=== PATIENT | male | born 1995 | race Caucasian/White ===

== ENCOUNTER 2021-07-10 16:45 | Emergency (ER) | payer OTHER, SELFPAY ==
[2021-07-10 17:10] VITALS: BP 123/87; PULSE 108; RESP 16; TEMP 36.3; O2SAT 98
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
[2021-07-10 17:41] VITALS: BP 135/70; PULSE 103; RESP 16; TEMP 36.3; O2SAT 98
== END 2021-07-10 17:42 | disposition home or self-care (01) ==
PROVIDERS: Emergency Provider Emergency Medicine
DX: L02.91 Cutaneous abscess, unspecified (principal)
CPT/HCPCS: 99283

== ENCOUNTER 2021-09-10 21:06 | Emergency (ER) | payer OTHER, SELFPAY ==
[2021-09-10 21:10] VITALS: BP 149/78; PULSE 88; RESP 14; TEMP 36.6; O2SAT 98
--- NOTE | 2021-09-10 21:23 | ED.NECK ---
HPI - Neck Pain/Injury General Stated Complaint: neck pain Time Seen by Provider: 09/10/21 21:23 Source: patient and RN notes reviewed Mode of arrival: ambulatory Limitations: no limitations History of Present Illness HPI Narrative: Patient states he woke up about a week ago and stretched his neck to both sides and then felt pain on the right side of his neck. He has tried some Aleve [id number] and Tylenol. It still continues to have pain. There is no injury. He denies any nausea vomiting, fever chills. No numbness or tingling in his arms. complaint: neck pain Onset (ago): week(s) (1) Place: home Radiation: right lateral Severity: moderate Quality: burning, dull and aching Duration: constant Relieving factors: none Exacerbating factors: movement of neck Context: unknown Associated symptoms: none Treatments prior to arrival: acetaminophen and ibuprofen Related Data Allergies Allergy/AdvReac Type Severity Reaction Status Date / Time Penicillins Allergy Unknown Verified 09/10/21 22:06 Review of Systems Review of Systems: All systems reviewed & are unremarkable except as noted in HPI and below Constitutional: Constitutional: Denies chills and Denies fever(s) Gastrointestinal: Gastrointestinal: Denies diarrhea and Denies vomiting Neurologic: Denies numbness and Denies weakness PMFSH Past Medical History Medical History Asthma Exam Const: General: healthy appearing, no acute distress and alert Nutritional Appearance: well nourished Orientation/consciousness: patient oriented x3 Limitations: no limitations HENMT: Head: normal to inspection Ears: external ears normal General nose exam: Normal external nose present Face and sinus: normal facial exam Mouth: Yes moist mucous membranes Eyes: Conjunctivae: conjunctivae normal Pupils: Equal, round and reactive pupils present EOM: EOMs intact bilaterally Neck: Neck: normal visual inspection Resp: Effort & Inspection: normal respiratory effort Auscultation: clear to auscultation bilaterally Cardio: Rate: regular rate Rhythm: regular rhythm GI: GI Palp: Yes Soft to palpation and No Tenderness to palpation present (GI) Auscultation: normal bowel sounds Back/Spine/Pelvis: Cervical Spine: cervical ROM normal, cervical muscular tenderness ( moderate on the right) and pain with cervical ROM ( in all directions but able to fully rotate his neck) Thoracic/Lumbar Spine: thoraco-lumbar ROM normal Skin: General skin exam: normal color Rashes: no rashes Wounds: no wounds Neuro: General: patient oriented x3, moves all extremities, no meningeal signs and CN's II-XI intact bilaterally Speech: normal speech Gait exam (Neuro): Normal gait present Extrem: General: normal to inspection and no clubbing, cyanosis or edema Psych: Mental Status: mental status grossly normal Affect: normal affect Attitude: cooperative Discharge Plan Discharge Clinical Impression: Acute strain of neck muscle Patient Disposition: Home, Self-Care Condition: Stable Instructions: Cervical Strain (ED) Additional Instructions: use warm heat as needed to the right side of her neck. Follow-up with your primary care physician if it does not resolve in the next 3-6 weeks. Prescriptions: New nabumetone 750 mg tablet 750 mg PO BID Qty: 20 0RF tramadol 50 mg tablet 50 mg PO Q6H PRN (Reason: pain) Qty: 10 0RF Follow-up/Referrals: Felisa,MD Efren [Primary Care Provider] - Time of Disposition: 21:33
[2021-09-10] MEDS: KETOROLAC (*BKC) 60 MG/2 ML VIAL IM (21:54)
[2021-09-10] MEDS: ORPHENADRINE CITRATE 30 MG/ML 2 ML VIAL 60 MG IM (21:55)
[2021-09-10 22:12] VITALS: BP 146/83; PULSE 86; RESP 16; O2SAT 100
== END 2021-09-10 22:16 | disposition home or self-care (01) ==
PROVIDERS: Emergency Provider Emergency Medicine; PCP Family Medicine
DX: S16.1XXA Strain of muscle, fascia and tendon at neck level, initial encounter (principal)
CPT/HCPCS: 96372; 99284; J1885; J2360

== ENCOUNTER 2022-02-01 18:43 | Emergency (ER) | payer OTHER, SELFPAY ==
--- NOTE | 2022-02-01 18:45 | ED.WOUNDLAC ---
HPI - Wound/Laceration General Chief Complaint: Wound/Laceration Stated Complaint: amb Time Seen by Provider: 02/01/22 18:45 Source: patient and RN notes reviewed Mode of arrival: EMS Limitations: no limitations History of Present Illness HPI narrative: accidentally cut it with a knife in soapy water in the dishes. Onset (ago): minute(s) (30) Extremity Location: Right: hand (5th finger) Place: home Patient tetanus UTD: Yes Context: accidental and sharp object use Associated symptoms: none Treatments prior to arrival: bandage Related Data Home Medications Medication Instructions Recorded Confirmed albuterol sulfate 90 mcg/actuation 2 inh inhalation Q4H PRN Shortness 02/01/22 02/01/22 aerosol inhaler Of Breath Allergies Allergy/AdvReac Type Severity Reaction Status Date / Time Penicillins Allergy Unknown Verified 09/10/21 22:13 SKIN GLUE Allergy Unknown Uncoded 02/01/22 18:56 Review of Systems Review of Systems: All systems reviewed & are unremarkable except as noted in HPI and below PMFSH Past Medical History Medical History (Updated 02/01/22 @ 19:25 by Preston Owens MD) Asthma Surgical History Surgical History (Updated 02/01/22 @ 18:52 by Preston Owens MD) Hypospadias Exam Const: General: healthy appearing, no acute distress and alert Nutritional Appearance: well nourished Orientation/consciousness: patient oriented x3 Limitations: no limitations HENMT: Head: normal to inspection Ears: external ears normal Eyes: Conjunctivae: conjunctivae normal Pupils: Equal, round and reactive pupils present EOM: EOMs intact bilaterally Neck: Neck: normal visual inspection Resp: Effort & Inspection: normal respiratory effort Auscultation: clear to auscultation bilaterally Cardio: Rate: regular rate Rhythm: regular rhythm GI: GI Palp: Yes Soft to palpation and No Tenderness to palpation present (GI) Auscultation: normal bowel sounds Back/Spine/Pelvis: Cervical Spine: cervical ROM normal Thoracic/Lumbar Spine: thoraco-lumbar ROM normal Skin: General skin exam: normal color Wounds: wounds noted laceration right volar 5th finger size (2.5 cm), margins well approximated and open Neuro: General: patient oriented x3, moves all extremities, no focal motor deficits and CN's II-XI intact bilaterally Speech: normal speech Extrem: General: normal to inspection and no clubbing, cyanosis or edema Psych: Mental Status: mental status grossly normal Affect: normal affect Attitude: cooperative Course Vital Signs Vital signs: Vital Signs Temperature 36.6 C 02/01/22 18:48 Pulse Rate 113 H 02/01/22 18:48 Respiratory Rate 20 02/01/22 18:48 Blood Pressure 148/91 H 02/01/22 18:48 Pulse Oximetry 96 02/01/22 18:48 Oxygen Delivery Room Air 02/01/22 18:48 Temperature 37.1 C 02/01/22 19:45 Pulse Rate 99 02/01/22 19:45 Respiratory Rate 20 02/01/22 19:45 Blood Pressure 172/99 H 02/01/22 19:45 Pulse Oximetry 98 02/01/22 19:45 Oxygen Delivery Room Air 02/01/22 19:45 Procedures Laceration Laceration 1: Date: 02/01/22 Site: hand (5th finger) Side (If applicable): right Size (cm): 2.5 Description: flap Depth: simple, single layer Local Anesthetic: lidocaine 1% ( Digital nerve block) Amount of anesthesia used (mL): 7 Pre-repair: wound explored and irrigated ====== Skin Level ====== Skin layer closed with: nylon Size (cm): 4-0 Number of sutures: 8 Technique: running ====== Subcutaneous Layer ====== ====== Muscle Layer ====== ====== Tendon Layer ====== Discharge Plan Discharge Clinical Impression: Laceration Patient Disposition: Home, Self-Care Condition: Improved Instructions: Care For Your Stitches (ED), Laceration (ED) Additional Instructions: do not get wet for 36 hours. Leave the bandage on for 36 hours. Sutures out in 10-14 d
[2022-02-01 18:48] VITALS: BP 148/91; PULSE 113; RESP 20; TEMP 36.6; O2SAT 96
[2022-02-01 19:45] VITALS: BP 172/99; PULSE 99; RESP 20; TEMP 37.1; O2SAT 98
[2022-02-01] MEDS: NEOMYCIN/POLYMYXIN/BACITRACIN OINTMENT PACKET 1 PACKET TOPICAL (19:47)
== END 2022-02-01 19:49 | disposition home or self-care (01) ==
PROVIDERS: Emergency Provider Emergency Medicine; PCP Family Medicine
DX: S61.216A Laceration without foreign body of right little finger without damage to nail, initial encounter (principal); W26.0XXA Contact with knife, initial encounter
CPT/HCPCS: 12001; 99282

== ENCOUNTER 2022-03-22 23:16 | Emergency (ER) | payer OTHER, SELFPAY ==
[2022-03-22 23:18] VITALS: BP 142/102; PULSE 108; RESP 16; TEMP 36.9; O2SAT 97
--- NOTE | 2022-03-22 23:27 | ED.GENADULT ---
HPI - General Adult General Chief complaint: Dental/Oral Stated complaint: Tooth Pain History of Present Illness HPI narrative: Dinesh is a 26 M with a PMH of poor dentition that presents to the ED with bilateral jaw pain, L>R. It has been ongoing for 1.5 years but became much worse today. He also has some left sided facial swelling. There are no fevers, chills, inability to swallow, CP, or dyspnea. He reports a penicillin allergy from childhood but does not know his response. He tolerates amoxicillin without difficulty. Related Data Home Medications Medication Instructions Recorded Confirmed albuterol sulfate 90 mcg/actuation 2 inh inhalation Q4H PRN Shortness 02/01/22 03/22/22 aerosol inhaler Of Breath Allergies Allergy/AdvReac Type Severity Reaction Status Date / Time Penicillins Allergy Unknown Verified 03/22/22 23:21 SKIN GLUE Allergy Unknown Uncoded 02/01/22 18:56 Review of Systems Review of Systems: All systems reviewed & are unremarkable except as noted in HPI and below [facility] Past Medical History Medical History Asthma Surgical History Surgical History Hypospadias Exam Const: General: healthy appearing and no acute distress Nutritional Appearance: well nourished HENMT: Head: normal to inspection Ears: external ears normal Other: mild facial swelling on the left. Left anterior cervical lymphadenopathy. Generally poor dentition. Left lower molars are painful and TTP with erythematous base Eyes: Conjunctivae: conjunctivae normal Pupils: Equal, round and reactive pupils present Neck: Neck: normal visual inspection Chest: Chest palpation & inspection: normal inspection of the chest Resp: Effort & Inspection: normal respiratory effort Cardio: Rate: regular rate Back/Spine/Pelvis: Back: no CVA tenderness Skin: General skin exam: normal color Rashes: no rashes Neuro: General: patient oriented x3 and moves all extremities Extrem: General: normal to inspection Psych: Mental Status: mental status grossly normal Course Course Emergency Course: Given Augmentin and toradol Vital Signs Vital signs: Vital Signs Temperature 98.5 F 03/22/22 23:18 Pulse Rate 108 H 03/22/22 23:18 Respiratory Rate 16 03/22/22 23:18 Blood Pressure 142/102 H 03/22/22 23:18 Pulse Oximetry 97 03/22/22 23:18 Oxygen Delivery Room Air 03/22/22 23:18 Temperature 98.5 F 03/22/22 23:18 Pulse Rate 94 03/22/22 23:57 Respiratory Rate 16 03/22/22 23:57 Blood Pressure 157/84 H 03/22/22 23:57 Pulse Oximetry 97 03/22/22 23:57 Oxygen Delivery Room Air 03/22/22 23:57 Medical Decision Making Vital Signs Vital Signs: Vital Signs Temperature 98.5 F 03/22/22 23:18 Pulse Rate 108 H 03/22/22 23:18 Respiratory Rate 16 03/22/22 23:18 Blood Pressure 142/102 H 03/22/22 23:18 Pulse Oximetry 97 03/22/22 23:18 Oxygen Delivery Room Air 03/22/22 23:18 Temperature 98.5 F 03/22/22 23:18 Pulse Rate 94 03/22/22 23:57 Respiratory Rate 16 03/22/22 23:57 Blood Pressure 157/84 H 03/22/22 23:57 Pulse Oximetry 97 03/22/22 23:57 Oxygen Delivery Room Air 03/22/22 23:57 Discharge Plan Discharge Clinical Impression: Dental abscess Patient Disposition: Home, Self-Care Condition: Stable Instructions: Dental Abscess (ED) Prescriptions: New amoxicillin-pot clavulanate 875-125 mg tablet 1 tablet PO Q12H Qty: 10 0RF hydrocodone-acetaminophen 5-325 mg tablet 1 tablet PO Q8H PRN (Reason: pain) Qty: 10 0RF No Action albuterol sulfate 90 mcg/actuation HFA aerosol inhaler 2 inh INHALATION Q4H PRN (Reason: Shortness Of Breath) Follow-up/Referrals: Felisa,MD Efren [Primary Care Provider] - Stand Alone Forms: Work/School Release IP
[2022-03-22] MEDS: KETOROLAC 30 MG/ML VIAL (*BKC) IM (23:39)
[2022-03-22] MEDS: AMOXICILLIN/CLAVULANATE K 875-125 MG TAB 1 TABLET PO (23:39)
[2022-03-22 23:57] VITALS: BP 157/84; PULSE 94; RESP 16; O2SAT 97
== END 2022-03-23 00:04 | disposition home or self-care (01) ==
PROVIDERS: Emergency Provider Family Medicine; PCP Family Medicine
DX: K04.7 Periapical abscess without sinus (principal); J45.909 Unspecified asthma, uncomplicated; Z79.51 Long term (current) use of inhaled steroids
CPT/HCPCS: 96372; 99283; A9270; J1885

== ENCOUNTER 2022-06-01 20:00 | Emergency (ER) | payer OTHER, SELFPAY ==
[2022-06-01 20:11] VITALS: BP 121/93; PULSE 111; RESP 20; TEMP 36.8; O2SAT 97
--- NOTE | 2022-06-01 20:58 | ED.DENTAL ---
HPI - Dental/Oral General Chief complaint: Dental/Oral Stated complaint: Tooth Pain Time Seen by Provider: 06/01/22 20:10 Source: patient Mode of arrival: ambulatory Limitations: no limitations History of Present Illness HPI Narrative: 26-year-old male with no significant past medical history presents to the ER with -- left lower dental pain. The patient has chronic pain which has gotten worse over the past few days. The patient has extensive dental caries with fractures of multiple teeth. MD Complaint: tooth pain Location: Tooth # ( the patient has involvement of all premolars and molars with missing crowns and extensive dental caries) Onset (ago): week(s) Severity: moderate Relieving factors: nothing Exacerbating factors: nothing Context: history of dental caries and poor dental care Treatment prior to arrival: none Related Data Home Medications Medication Instructions Recorded Confirmed albuterol sulfate 90 mcg/actuation 2 inh inhalation Q4H PRN Shortness 02/01/22 03/22/22 aerosol inhaler Of Breath Allergies Allergy/AdvReac Type Severity Reaction Status Date / Time Penicillins Allergy Unknown Verified 03/22/22 23:21 SKIN GLUE Allergy Unknown Uncoded 02/01/22 18:56 Review of Systems Review of Systems: All systems reviewed & are unremarkable except as noted in HPI and below Constitutional: Constitutional: Reports as per HPI and Reports no additional constitutional complaints Eyes: Eyes: Reports as per HPI and Reports no additional eye complaints ENT: Reports system reviewed and no additional complaints, except as documented Comments: extensive dental caries with pain left lower jaw Cardiovascular: Cardiovascular: Reports as per HPI and Reports no additional cardiovascular complaints Respiratory: Respiratory: Reports as per HPI and Reports no additional respiratory complaints Gastrointestinal: Gastrointestinal: Reports as per HPI and Reports no additional gastrointestinal complaints Genitourinary: Genitourinary: Reports no additional male genitourinary complaints Musculoskeletal: Musculoskeletal: Reports no additional musculoskeletal complaints Integumentary/Breasts: Skin/Breast: Reports system reviewed and no additional complaints, except as docu and Reports as per HPI Neurologic: Reports system reviewed and no additional complaints, except as documented and Reports as per HPI Psychiatric: Psychiatric: Reports no additional psychiatric complaints and Reports as per HPI Endocrine: Endocrine: Reports no additional endocrine complaints and Reports as per HPI Hematologic/Lymphatic: Hematologic/Lymphatic: Reports no additional hematologic/lymphatic complaints and Reports as per HPI Allergic/Immunologic: Allergic/Immunologic: Reports no additional allergic/immunologic complaints and Reports as per HPI PMFSH Past Medical History Medical History (Updated 06/01/22 @ 21:05 by Koby Salazar MD) Asthma Dental caries Surgical History Surgical History Hypospadias Exam Const: General: healthy appearing and no acute distress Nutritional Appearance: well nourished Orientation/consciousness: patient oriented x3 Limitations: no limitations HENMT: Head: normal to inspection Ears: external ears normal Face/Nose/Sinus: Normal external nose present Face and sinus: normal facial exam Mouth: Yes Normal oral and palatal mucosa present Teeth and gingiva: dentition normal ( extensive dental caries. Missing/ fractured crowns of all molars and pre) Throat: posterior oropharynx normal Eyes: Conjunctivae: conjunctivae normal Pupils: Equal, round and reactive pupils present EOM: EOMs intact bilaterally Direct Ophthalmoscopy: no photophobia Neck: Neck: normal visual inspection, no lymphadenopathy and no meningeal signs Chest: Chest palpation & inspection: normal inspection of the chest Resp: Effort & Inspection: normal respiratory effort Au
[2022-06-01] MEDS: HYDROcodone/acetaminophen (*CRX) 5-325 MG TABLET 1 TAB PO (21:22)
[2022-06-01] MEDS: CLINDAMYCIN HCL 150 MG CAP 300 MG PO (21:22)
[2022-06-01 21:27] VITALS: BP 132/84; PULSE 88; RESP 20; O2SAT 98
== END 2022-06-01 21:40 | disposition home or self-care (01) ==
PROVIDERS: Emergency Provider Internal Medicine Critical Care Medicine; PCP Registered Nurse
DX: K02.9 Dental caries, unspecified (principal)
CPT/HCPCS: 99283; A9270

== ENCOUNTER 2023-01-02 14:20 | Emergency (ER) | payer OTHER, SELFPAY ==
--- NOTE | ~2023-01-02 | XR_ITS ---
EXAMINATION:[id number] DATE: 01/02/2023 15:36 INDICATION: One week of left-sided neck pain radiating into the left arm TECHNIQUE: AP, lateral, lateral swimmers and odontoid views of the cervical spine are provided. COMPARISON: None FINDINGS: There is reversal of the normal cervical lordosis along with 10 degree cervical levocurvature. Odont oid is intact. Normal atlantoaxial interval. Vertebral body heights are normal. Disc spaces are damian l. Mild uncovertebral osteoarthritis on the left at C3-C4 and on the right at C4-C5 and C5-C6. Mild f acet osteoarthritis in the mid to upper thoracic spine on the lateral projection. Prevertebral soft t issues are normal. IMPRESSION: 1. Mild cervical kyphosis with 10 degree levocurvature. 2. Mild cervical facet and uncovertebral osteoarthritis with preserved disc heights. Reviewed, dictated and finalized at location A. IMPRESSION: 1. Mild cervical kyphosis with 10 degree levocurvature. 2. Mild cervical facet and uncovertebral osteoarthritis with preserved disc hei ghts.
[2023-01-02 14:20] VITALS: BP 153/91; PULSE 104; RESP 14; TEMP 36.7; O2SAT 97
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
[2023-01-02] MEDS: KETOROLAC 30 MG/ML VIAL (*BKC) IM (15:06)
[2023-01-02 16:14] VITALS: BP 142/81; PULSE 92; RESP 17; TEMP 36.9; O2SAT 98
== END 2023-01-02 16:14 | disposition home or self-care (01) ==
PROVIDERS: Emergency Provider Emergency Medicine; PCP Registered Nurse
DX: S16.1XXA Strain of muscle, fascia and tendon at neck level, initial encounter (principal); M50.10 Cervical disc disorder with radiculopathy, unspecified cervical region; Y04.0XXA Assault by unarmed brawl or fight, initial encounter
CPT/HCPCS: 72040; 96372; 99283; J1885

== ENCOUNTER 2023-03-13 12:10 | Emergency (ER) | payer OTHER, SELFPAY ==
[2023-03-13 12:17] VITALS: BP 128/72; PULSE 98; RESP 18; TEMP 37.1; O2SAT 98
--- NOTE | 2023-03-13 12:43 | ECG_ITS ---
Measurements Intervals [place] Rate: 111 P: 39 MS: 164 QRS: 28 QRSD: 89 T: 62 QT: 320 QTc: 436 Interpretive Statements SINUS TACHYCARDIA POSSIBLE LEFT ATRIAL ENLARGEMENT [-0.1mV P-WAVE IN V1/V2] NONSPECIFIC T-WAVE ABNORMALITY ABNORMAL RHYTHM ECG NO PREVIOUS ECG AVAILABLE FOR COMPARISON Electronically Signed On 03-15-2023 13:57:58 ROOMS DIRECTOR by Roxanne Nicole M.D.
[2023-03-13] MEDS: SODIUM CHLORIDE 0.9% IV 1,000 ML 999 ML IV CONT (13:01)
[2023-03-13] MEDS: ONDANSETRON INJ 4 MG/2 ML VIAL IV PUSH (13:02)
[2023-03-13 13:05] LABS: Hematocrit 44.4 % (40.0-54.0); Hemoglobin 15.5 g/dL (14.0-18.0); Mean Corpuscular HGB Conc 34.9 g/dL (32.0-36.0); Mean Corpuscular Volume 85.9 fL (78.0-102.0); Mean Platelet Volume 8.5 fl (8.7-11.0); Platelet Count Result 169 K/mm3 (150-420); Red Blood Count 5.17 M/mm3 (4.70-6.10); Red Cell Distribution Width 12.1 % (11.6-14.4); White Blood Count 5.9 K/mm3 (4.8-10.8)
[2023-03-13 13:23] LABS: Band Neutrophils Percent 0 % (0-6); Eosinophils Absolute Manual 0.05 K/mm3 (0.02-0.5); Eosinophils Percent Manual 1 % (1-6); Neutrophils Absolute Manual 3.77 K/mm3 (1.3-6.7); Neutrophils Percent Manual 64 % (46-73); Total Cells Counted 100
[2023-03-13 13:24] LABS: Platelet Estimate Adequate (Adequate)
[2023-03-13 13:26] LABS: Alanine Aminotransferase 77 U/L (16-63); Albumin Level 4.1 g/dL (3.4-5.0); Alkaline Phosphatase 129 U/L (46-116); Anion Gap 5 mmol/L (8-16); Aspartate Amino Transferase 30 U/L (15-37); Bilirubin,Total 0.4 mg/dL (0.00-1.00); Blood Urea Nitrogen 13 mg/dL (7-18); Calcium 8.9 mg/dL (8.5-10.1); Carbon Dioxide 32 mmol/L (21-32); Chloride 98 mmol/L (98-108); Estimated CRCL calculation 117 ml/min; Estimated Glomerular Filt Rate > 60; Glucose 114 mg/dL (70-99); Osmolality Calculated 281 mOsm/kg (285-295); Potassium 3.6 mmol/L (3.5-5.1); Sodium 135 mmol/L (136-145); Total Protein 7.2 g/dL (6.4-8.2)
[2023-03-13 13:27] LABS: Creatine Kinase 187 U/L (39-308)
[2023-03-13 14:23] LABS: SARS-CoV-2 RNA PCR Positive (Negative)
[2023-03-13 14:24] LABS: Influenza A QL RT-PCR Negative (Negative); Influenza B QL RT-PCR Negative (Negative); RSV RNA, RT-PCR Negative (Negative)
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
[2023-03-13 15:39] VITALS: BP 131/50; PULSE 110; RESP 20; TEMP 37.1; O2SAT 98
[2023-03-15 06:55] LABS: Lymphocytes Absolute Manual 0.76 K/mm3 (1.1-4.5); Lymphocytes Percent Manual 13 % (18-44)
[2023-03-15 06:56] LABS: Basophils Absolute Manual 0.05 K/mm3 (0-0.1); Basophils Percent Manual 1 % (0-1); Monocytes Absolute Manual 1.23 K/mm3 (0.1-0.90); Monocytes Percent Manual 21 % (3-9)
== END 2023-03-13 15:44 | disposition home or self-care (01) ==
PROVIDERS: Emergency Provider Emergency Medicine; PCP Registered Nurse
DX: U07.1 COVID-19 (principal); J45.909 Unspecified asthma, uncomplicated
CPT/HCPCS: 36415; 80053; 82550; 85025; 87637; 93005; 96361; 96374; 99284; J2405; J7030

== ENCOUNTER 2023-05-05 22:08 | Emergency (ER) | payer OTHER, SELFPAY ==
[2023-05-05 22:11] VITALS: BP 140/89; PULSE 107; RESP 20; TEMP 36.6; O2SAT 100
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
[2023-05-05] MEDS: SILVER NITRATE (*SP) STICK 1 EACH TOPICAL (22:19)
[2023-05-05] MEDS: LIDOCAINE HCL 1% LOCAL INJ 10 ML VIAL 2 ML INFILTRATE (22:25)
[2023-05-05] MEDS: SULFAMETHOXAZOLE/TRIMETHOPRIM 800/160 MG DS TABLET 1 TAB PO (22:49)
== END 2023-05-05 23:00 | disposition home or self-care (01) ==
LOC: CHSED 22:40
PROVIDERS: Emergency Provider Internal Medicine Critical Care Medicine; PCP Registered Nurse
DX: L98.491 Non-pressure chronic ulcer of skin of other sites limited to breakdown of skin (principal)
CPT/HCPCS: 99283; A9270

== ENCOUNTER 2024-04-04 11:51 | Outpatient (CLI) | payer OTHER, SELFPAY ==
[2024-04-04 12:41] LABS: Strep Group A RT-PCR NOT DETECTED (Negative)
[2024-04-04 12:48] LABS: SARS-CoV-2 RNA PCR Negative (Negative)
[2024-04-04 12:51] LABS: Influenza A QL RT-PCR Positive (Negative); Influenza B QL RT-PCR Negative (Negative)
== END 2024-04-04 11:52 | disposition home or self-care (01) ==
LOC: CHSLAB 11:55
PROVIDERS: PCP Registered Nurse; Visit Provider Registered Nurse
DX: U07.1 COVID-19 (principal); R68.89 Other general symptoms and signs
CPT/HCPCS: 87636; 87651

== ENCOUNTER 2024-04-13 18:22 | Emergency (ER) | payer OTHER, SELFPAY ==
[2024-04-13 18:22] VITALS: BP 127/84; PULSE 82; RESP 16; TEMP 37.1; O2SAT 97
--- NOTE | 2024-04-13 18:33 | ED_ITS ---
HPI - Extremity Problem General Chief complaint: Extremity Problem,Nontraumatic Stated complaint: hand pain Time Seen by Provider: 04/13/24 18:33 Source: patient Mode of arrival: ambulatory Limitations: no limitations History of Present Illness HPI Narrative: patient had been diagnosed by his primary with frostbite in his bilateral hands and a missed appointment today for reassessment, currently having some mild discomfort in his hands but circulation is a markedly improved his hands and fingers jessica has a good radial pulse with mild redness and has some no numbness or tingling in his hands or fingers. Complaint: extremity pain and extremity swelling Onset (ago): day(s) Location: upper extremity Related Data Allergies Allergy/AdvReac Type Severity Reaction Status Date / Time Penicillins Allergy Unknown Verified 04/13/24 18:23 SKIN GLUE Allergy Unknown Uncoded 03/13/23 15:35 Review of Systems Review of Systems: All systems reviewed & are unremarkable except as noted in HPI and below PMFSH Past Medical History Medical History Dental caries Asthma Surgical History Surgical History Hypospadias Exam Const: General: healthy appearing and no acute distress Nutritional Appearance: well nourished Orientation/consciousness: patient oriented x3 Limitations: no limitations Chest: Chest palpation & inspection: normal inspection of the chest Resp: Effort & Inspection: normal respiratory effort Auscultation: clear to auscultation bilaterally Cardio: Rate: regular rate Rhythm: regular rhythm GI: GI Palp: Yes Soft to palpation Auscultation: normal bowel sounds Skin: General skin exam: normal color Rashes: no rashes Wounds: no wounds Neuro: General: patient oriented x3, moves all extremities and no meningeal signs Course Course Emergency Course: After assessment no evidence of frostbite. Vital Signs Vital signs: Vital Signs Temperature 37.1 C 04/13/24 18:22 Pulse Rate 82 04/13/24 18:22 Respiratory Rate 16 04/13/24 18:22 Blood Pressure 127/84 04/13/24 18:22 Pulse Oximetry 97 04/13/24 18:22 Oxygen Delivery Room Air 04/13/24 18:22 Temperature 37.1 C 04/13/24 18:22 Pulse Rate 82 04/13/24 18:22 Respiratory Rate 16 04/13/24 18:22 Blood Pressure 127/84 04/13/24 18:22 Pulse Oximetry 97 04/13/24 18:22 Oxygen Delivery Room Air 04/13/24 18:22 Critical Care Time Critical Care Time Critical Care Time: No Discharge Plan Discharge Clinical Impression: Frostbite of both hands Patient Disposition: Home, Self-Care Condition: Stable Instructions: Antibiotic Form, Frostbite (ED) Additional Instructions: advised to take Advil twice daily with meals for the next 3 to 4 days. Patient Language: [place] Prescriptions: No Action sulfamethoxazole-trimethoprim [Bactrim DS] 800-160 mg tablet 1 tablet PO Q12H Qty: 14 0RF Follow-up/Referrals: Nithya,DASH Ontiveros [Primary Care Provider] - Time of Disposition: 18:37
[2024-04-13 19:01] VITALS: BP 127/84; PULSE 82; RESP 16; TEMP 37.1; O2SAT 97
== END 2024-04-13 19:01 | disposition home or self-care (01) ==
LOC: CHSED 18:42
PROVIDERS: Emergency Provider Emergency Medicine; PCP Registered Nurse
DX: M79.642 Pain in left hand (principal); M79.641 Pain in right hand; X31.XXXA Exposure to excessive natural cold, initial encounter
CPT/HCPCS: 99281

== ENCOUNTER 2024-07-26 13:09 | Emergency (ER) | payer OTHER, SELFPAY ==
[2024-07-26] VITALS (17 sets, daily range): BP systolic 136–155; BP diastolic 81–91; PULSE 91–114; RESP 13–29; TEMP 37; O2SAT 95–99
--- NOTE | ~2024-07-26 | CT_ITS ---
CTA chest PE protocol Ordering provider: Koby Salazar MD History: 28 years Male with . right hilar mass, chest pain and sob . Comparison: None. Technique: CT angiogram chest was performed following timed intravenous injection of contrast. Thin s lice axial images and reformatted coronal images were obtained. Three dimensional reformatted images of the chest were also obtained using a [employer] workstation. . Automated exposure control and iterati ve reconstruction technique were employed. The dose-length product was 490.36 mGy-cm. 100 mL Omnipaqu e 350 was given IV. Findings: PULMONARY ARTERIES: No pulmonary embolus. VISUALIZED THORACIC INLET: Normal. Jugular lymph nodes are noted with the largest on the right measures 1.6 cm.Big toe. : MEDIASTINUM: Aorta/coronary arteries: The thoracic aorta is normal. Heart/other: The heart is not enlarged. Lymph nodes: No mediastinal adenopathy. Right hilar enhancing lymph node with peripheral calcificatio n is seen measuring 1.7 x 2.2 x 2.5 cm. The differential include sarcoidosis versus infection versus granulomatous disease. Follow-up advised. LUNGS: 5 mm nodule is seen in the right upper lobe. 6 months follow-up CT is advised. No pulmonary masses. N o infiltrates or effusions. No pneumothorax. VISUALIZED UPPER ABDOMEN: the visualized upper abdomen is normal. MUSCULOSKELETAL: Soft tissues: The superficial soft tissues are normal. Bones: Normal spine. IMPRESSION: 1. No pulmonary embolism. 2. No acute cardiopulmonary pathology. 3. Enhancing calcified right hilar lymph node. Differential include sarcoidosis, granulomatous disea se and infection. Clinical correlation and follow-up advised. 4. 5 mm nodule in the right upper lobe. 6 months follow-up CT is advised. Reviewed, dictated and finalized at location A. IMPRESSION: 1. No pulmonary embolism. 2. No acute cardiopulmonary pathology. 3. Enhancing calcified right hilar lymph node. Differential include sarcoidosi s, granulomatous disease and infection. Clinical correlation and follow-up advi sed. 4. 5 mm nodule in the right upper lobe. 6 months follow-up CT is advised.
--- NOTE | ~2024-07-26 | XR_ITS ---
Portable chest x-ray Comparison: None Clinical History: Chest pain Findings: There is a 2 cm rounded opacity in the right hilar region, which could reflect a prominent vessel en face versus lymphadenopathy or mass. Lungs are otherwise clear. Cardiomediastinal silhoue tte is stable. Bones and soft tissues are unremarkable. Impression: 2 cm rounded opacity right perihilar region, as discussed above. Contrast-enhanced chest CT recommend ed to confirm or exclude pathologic mass. Reviewed, dictated and finalized at location . Impression: 2 cm rounded opacity right perihilar region, as discussed above. Contrast-enhan luis chest CT recommended to confirm or exclude pathologic mass.
--- NOTE | 2024-07-26 13:20 | ED_ITS ---
HPI - Chest Pain General Chief Complaint: Chest Pain Stated Complaint: chest pain Time Seen by Provider: 07/26/24 13:19 Source: patient Mode of arrival: ambulatory Limitations: no limitations History of Present Illness HPI narrative: 28-year-old male with a history of smoking,asthma, dental caries presents to the ED with a 1 month history of -- left chest pain off and on. pain is not precipitated by activity. When the pain comes on it stays for an hour with Spontaneous resolution -- Nonproductive cough -- wheezing on exertion -- diarrhea for the past 2 days. no nausea/vomiting. No abdominal pain. . No fever. MD complaint: chest pain Onset (ago): month(s) ( One month) Timing of current episode: episodic Prior episodes: Yes Onset: during rest Pain location: left chest Pain radiation: none Severity: moderate Quality: aching Relieving factors: nothing Exacerbating factors: nothing Associated symptoms: cough Treatment prior to arrival: none Risk Factors Coronary artery disease risk factors: smoking history Related Data Allergies Allergy/AdvReac Type Severity Reaction Status Date / Time Penicillins Allergy Unknown Verified 07/26/24 13:13 SKIN GLUE Allergy Unknown Uncoded 03/13/23 15:35 Review of Systems 2 Review of Systems: All systems reviewed & are unremarkable except as noted in HPI and below Constitutional: Constitutional: Reports as per HPI and Reports no additional constitutional complaints Eyes: Eyes: Reports as per HPI and Reports no additional eye complaints ENT: Reports system reviewed and no additional complaints, except as documented and Reports as per HPI Cardiovascular: Cardiovascular: Reports as per HPI, Reports no additional cardiovascular complaints and Reports chest pain Respiratory: Respiratory: Reports as per HPI, Reports no additional respiratory complaints and Reports cough Gastrointestinal: Gastrointestinal: Reports as per HPI and Reports no additional gastrointestinal complaints Genitourinary: Genitourinary: Reports no additional male genitourinary complaints and Reports as per HPI Musculoskeletal: Musculoskeletal: Reports no additional musculoskeletal complaints and Reports as per HPI Integumentary/Breasts: Skin/Breast: Reports system reviewed and no additional complaints, except as docu and Reports as per HPI Neurologic: Reports system reviewed and no additional complaints, except as documented and Reports as per HPI Psychiatric: Psychiatric: Reports no additional psychiatric complaints and Reports as per HPI Endocrine: Endocrine: Reports no additional endocrine complaints and Reports as per HPI Hematologic/Lymphatic: Hematologic/Lymphatic: Reports no additional hematologic/lymphatic complaints and Reports as per HPI Allergic/Immunologic: Allergic/Immunologic: Reports no additional allergic/immunologic complaints and Reports as per HPI FOR[facility] Past Medical History Medical History Dental caries Asthma Surgical History Surgical History Hypospadias Exam 2 Narrative: blood pressure 155/91 Const: General: no acute distress Orientation/consciousness: patient oriented x3 Limitations: no limitations HENMT: Head: normal to inspection Ears: external ears normal F cy[place]/Nose/Sinus: Normal external nose present Face and sinus: normal facial exam Mouth: Yes Normal oral and palatal mucosa present Throat: posterior oropharynx normal Eyes: Conjunctivae: conjunctivae normal Pupils: Equal, round and reactive pupils present EOM: EOMs intact bilaterally Direct Ophthalmoscopy: no photophobia Neck: Neck: normal visual inspection, no lymphadenopathy and no meningeal signs Chest: Chest palpation & inspection: normal inspection of the chest Resp: Effort & Inspection: normal respiratory effort Auscultation: clear to auscultation bilaterally Cardio: Rate: regular rate Rhythm: regular rhythm GI: Other: no tenderness/rigidity / rebound. : General: Yes no CVA tenderness Back/Spine/Pelvis: Back: no CVA tenderness Skin: General skin exam: normal color Rashes: no rashes Wounds: no wounds Neuro: General: patient oriented x3 Speech: normal speech Gait exam (Neuro): Normal gait present Extrem: General: normal to inspection and no clubbing, cyanosis or edema Psych: Mental Status: mental status grossly normal Affect: normal affect Attitude: cooperative Course Course Emergency Course: chest pain-- negative cardiacs. EKG does not show any acute findings. CT of the chest were negative for PE right hilar lesion- noted to be a calcified right hilar node 5 mm the right apical pulmonary nodule-- needs repeat CT transaminitis Vital Signs Vital signs: Vital Signs Temperature 37.0 C 07/26/24 13:09 Pulse Rate 104 H 07/26/24 13:09 Respiratory Rate 17 07/26/24 13:09 Blood Pressure 155/91 H 07/26/24 13:09 Pulse Oximetry 97 07/26/24 13:09 Oxygen Delivery Room Air 07/26/24 13:09 Temperature 37.0 C 07/26/24 13:09 Pulse Rate 100 07/26/24 16:04 Respiratory Rate 18 07/26/24 16:04 Blood Pressure 138/81 07/26/24 14:45 Pulse Oximetry 99 07/26/24 16:04 Oxygen Delivery Room Air 07/26/24 13:09 MDM - Chest Pain MDM Narrative Medical decision making narrative: chest pain transaminitis pulmonary nodule Differential Diagnosis Differential diagnosis: Likely pneumothorax and atypical chest pain Medical Records Data Attestation: I reviewed the patient's medical records. Lab Data Attestation: I reviewed the patient's lab results. 07/26/24 13:46 07/26/24 13:46 Labs: Lab Results 07/26/24 Range/Units 13:46 WBC 9.1 (4.8-10.8) K/mm3 RBC 5.39 (4.70-6.10) M/mm3 Hgb 15.8 (14.0-18.0) g/dL Hct 46.2 (40.0-54.0) % MCV 85.7 (78.0-102.0) fL MCH 29.3 (27.0-31.0) pg MCHC 34.2 (32-36) g/dL RDW 12.4 (11.6-14.4) % Plt Count 212 (150-420) K/mm3 MPV 8.4 L (8.7-11.0) fl Immature Gran % (Auto) 0.4 H (0.0-0.0) % Neut % (Auto) 61.7 (50.0-70.0) % Lymph % (Auto) 27.8 (18.0-42.0) % [place] % (Auto) 6.8 (2.0-11.0) % Eos % (Auto) 2.8 (1.0-6.0) % Baso % (Auto) 0.5 (0.0-1.0) % Lymph # (Auto) 2.54 (1.10-4.50) K/mm3 [place] # (Auto) 0.62 (0.10-0.90) K/mm3 Eos # (Auto) 0.26 (0.02-0.50) K/mm3 Baso # (Auto) 0.05 (0.00-0.10) K/mm3 Abs Immat Gran (auto) 0.04 H (0.00-0.00) K/mm3 Absolute Neuts (auto) 5.63 (1.70-7.20) K/mm3 Absolute Nucleated RBC 0.00 (0.00-0.00) K/mm3 Nucleated RBC % 0.0 (0-0.0) % Sodium 139 (137-145) mmol/L Potassium 3.8 (3.4-5.0) mmol/L Chloride 105 (98-107) mmol/L Carbon Dioxide 28 (22-30) mmol/L Anion Gap 6 (4-12) mmol/L BUN 14 (9-20) mg/dL Creatinine 0.80 (0.7-1.3) mg/dL Estim Creat Clear Calc 150 ml/min Estimated GFR > 60 (59 - ) Glucose 128 H (65-110) mg/dL Calculated Osmolality 290 (285-295) mOsm/kg Calcium 9.0 (8.4-10.2) mg/dL Total Bilirubin 0.5 (0.2-1.3) mg/dL AST 74 H (17-59) U/L ALT 108 H (6-50) U/L Alkaline Phosphatase 97 (38-126) U/L Troponin I < 0.012 (0.000-0.034) ng/mL Total Protein 7.4 (6.3-8.2) g/dL Albumin 4.6 (3.5-5.1) g/dL Discharge Plan Discharge Clinical Impression: Atypical chest pain, Pulmonary nodule, Transaminitis Patient Disposition: Home Condition: Stable Instructions: Antibiotic Form, Chest Pain (ED), Pulmonary Nodules (ED), Transaminitis (ED) Patient Language: [place] Prescriptions: No Action sulfamethoxazole-trimethoprim [Bactrim DS] 800-160 mg tablet 1 tablet PO Q12H Qty: 14 0RF Follow-up/Referrals: Nithya,DASH Ontiveros [Primary Care Provider] - Time of Disposition: 16:27
--- NOTE | 2024-07-26 13:33 | ECG_ITS ---
Test Date: 2024-07-26 13:19:16 Measurements Intervals [place] Rate: 101 P: 59 TX: 167 QRS: 52 QRSD: 91 T: 61 QT: 332 QTc: 431 Interpretive Statements SINUS TACHYCARDIA NONSPECIFIC T-WAVE ABNORMALITY No previous ECG available for comparison Electronically Signed On 07-26-2024 13:59:31 CDT by Valerie Wade M.D.
[2024-07-26 13:51] LABS: Basophils Absolute Auto 0.05 K/mm3 (0.00-0.10); Basophils Percent Auto 0.5 % (0.0-1.0); Eosinophils Absolute Auto 0.26 K/mm3 (0.02-0.50); Eosinophils Percent Auto 2.8 % (1.0-6.0); Hematocrit 46.2 % (40.0-54.0); Hemoglobin 15.8 g/dL (14.0-18.0); Immature Granulocyte Absolute 0.04 K/mm3 (0.00-0.00); Immature Granulocyte Percent A 0.4 % (0.0-0.0); Lymphocytes Absolute Auto 2.54 K/mm3 (1.10-4.50); Lymphocytes Percent Auto 27.8 % (18.0-42.0); Mean Corpuscular HGB Conc 34.2 g/dL (32-36); Mean Corpuscular Hemoglobin 29.3 pg (27.0-31.0); Mean Corpuscular Volume 85.7 fL (78.0-102.0); Mean Platelet Volume 8.4 fl (8.7-11.0); Monocytes Absolute Auto 0.62 K/mm3 (0.10-0.90); Monocytes Percent Auto 6.8 % (2.0-11.0); Neutrophils Absolute Auto 5.63 K/mm3 (1.70-7.20); Neutrophils Percent Auto 61.7 % (50.0-70.0); Platelet Count Result 212 K/mm3 (150-420); Red Blood Count 5.39 M/mm3 (4.70-6.10); Red Cell Distribution Width 12.4 % (11.6-14.4); White Blood Count 9.1 K/mm3 (4.8-10.8)
[2024-07-26 14:15] LABS: Alanine Aminotransferase 108 U/L (6-50); Albumin Level 4.6 g/dL (3.5-5.1); Alkaline Phosphatase 97 U/L (38-126); Anion Gap 6 mmol/L (4-12); Aspartate Amino Transferase 74 U/L (17-59); Bilirubin,Total 0.5 mg/dL (0.2-1.3); Blood Urea Nitrogen 14 mg/dL (9-20); Carbon Dioxide 28 mmol/L (22-30); Chloride 105 mmol/L (98-107); Estimated CRCL calculation 150 ml/min; Estimated Glomerular Filt Rate > 60; Glucose 128 mg/dL (65-110); Osmolality Calculated 290 mOsm/kg (285-295); Potassium 3.8 mmol/L (3.4-5.0); Sodium 139 mmol/L (137-145); Total Protein 7.4 g/dL (6.3-8.2)
[2024-07-26 14:41] LABS: Troponin I < 0.012 ng/mL (0.000-0.034)
[2024-07-26] MEDS: LACTATED RINGERS 500 ML 999 ML IV CONT (14:52)
== END 2024-07-26 16:35 | disposition home or self-care (01) ==
PROVIDERS: Emergency Provider Internal Medicine Critical Care Medicine; PCP Registered Nurse
DX: R07.89 Other chest pain (principal); R91.1 Solitary pulmonary nodule; R74.01 Elevation of levels of liver transaminase levels; J45.909 Unspecified asthma, uncomplicated
CPT/HCPCS: 36415; 71045; 71275; 80053; 84484; 85025; 93005; 99284; J7120; Q9967

== ENCOUNTER 2024-07-30 19:01 | Emergency (ER) | payer OTHER, SELFPAY ==
--- NOTE | ~2024-07-30 | XR_ITS ---
XR hand LT min 3V Ordering provider: Santiago Palma MD History: . drill bit in hand . Comparison: None. FINDINGS: BONES: Metallic foreign bodies seen in the soft tissues near to the pisiform bone. No definite acute fracture or dislocation. JOINT SPACES: Well maintained. SOFT TISSUES: Unremarkable. IMPRESSION: No definite acute osseous abnormality left hand. Metallic foreign bodies seen medially in the soft tissues area of the wrist. Reviewed, dictated and finalized at location A.
[2024-07-30 19:06] VITALS: BP 152/84; PULSE 89; RESP 16; TEMP 37.1; O2SAT 97
--- NOTE | 2024-07-30 19:17 | WC.ED.TRAUMA ---
HPI - Trauma General Chief Complaint: Extremity Injury, Upper Stated Complaint: drill bit in left hand Time Seen by Provider: 07/30/24 19:07 Source: patient Mode of arrival: ambulatory Limitations: no limitations History of Present Illness HPI narrative: patient is a 28-year-old male with a left hypothenar area drill bit into the soft tissue accidentally at home. He was drilling and the bit broke and slipped into his palm. Tetanus shot unknown. MD complaint: injury Onset (ago): hour(s) ( One) Loss of Consciousness: no Location: other ( left palm) Severity: mild Severity scale (1-10): 1 Context: other ( drill bit into the left hand accidentally) Associated symptoms: denies other symptoms Treatments prior to arrival: other ( bandage) Related Data Allergies Allergy/AdvReac Type Severity Reaction Status Date / Time Penicillins Allergy Unknown Verified 07/30/24 19:11 SKIN GLUE Allergy Unknown Uncoded 07/30/24 19:11 Review of Systems Review of Systems: All systems reviewed & are unremarkable except as noted in HPI and below Constitutional: Constitutional: Reports no additional constitutional complaints Eyes: Eyes: Reports no additional eye complaints ENT: Reports system reviewed and no additional complaints, except as documented Cardiovascular: Cardiovascular: Reports no additional cardiovascular complaints Respiratory: Respiratory: Reports no additional respiratory complaints Gastrointestinal: Gastrointestinal: Reports no additional gastrointestinal complaints Genitourinary: Genitourinary: Reports no additional male genitourinary complaints Musculoskeletal: Musculoskeletal: Reports no additional musculoskeletal complaints Integumentary/Breasts: Skin/Breast: Reports system reviewed and no additional complaints, except as docu Neurologic: Reports system reviewed and no additional complaints, except as documented Psychiatric: Psychiatric: Reports no additional psychiatric complaints Endocrine: Endocrine: Reports no additional endocrine complaints Hematologic/Lymphatic: Hematologic/Lymphatic: Reports no additional hematologic/lymphatic complaints Allergic/Immunologic: Allergic/Immunologic: Reports no additional allergic/immunologic complaints PMFSH Past Medical History Medical History Dental caries Asthma Surgical History Surgical History Hypospadias Exam Const: General: healthy appearing Nutritional Appearance: well nourished Orientation/consciousness: patient oriented x3 HENMT: Head: normal to inspection Ears: external ears normal Face/Nose/Sinus: Normal external nose present Eyes: Conjunctivae: conjunctivae normal Pupils: Equal, round and reactive pupils present EOM: EOMs intact bilaterally Neck: Neck: normal visual inspection Chest: Chest palpation & inspection: normal inspection of the chest Resp: Effort & Inspection: normal respiratory effort and not labored Auscultation: clear to auscultation bilaterally and no rales Cardio: Rate: regular rate Rhythm: regular rhythm Heart sounds: no murmurs GI: Inspection: non-distended GI Palp: Yes Soft to palpation and No Tenderness to palpation present (GI) Auscultation: normal bowel sounds : General: Yes bladder normal to palpation Back/Spine/Pelvis: Back: no CVA tenderness Skin: General skin exam: normal color Rashes: no rashes Wounds: wound noted Other: left palm hypothenar base of the 5th digit soft tissue has a drill bit imbedded into the hand Neuro: General: patient oriented x3 Cranial nerves: Yes Nystagmus not present Speech: normal speech Extrem: General: normal to inspection Psych: Mental Status: mental status grossly normal Affect: normal affect Attitude: cooperative Course Vital Signs Vital signs: Vital Signs Temperature 37.1 C 07/30/24 19:06 Pulse Rate 89 07/30/24 19:06 Respiratory Rate 16 07/30/24 19:06 Blood Pressure 152/84 H 07/30/24 19:06 Pulse Oximetry 97 07/30/24 19:06 Oxygen Delivery Room Air 07/30/24 19:06 Temperature 37.1 C 07/30/24 19:06 Pulse Rate 89 07/30/24 19:06 Respiratory Rate 16 07/30/24 19:06 Blood Pressure 152/84 H 07/30/24 19:06 Pulse Oximetry 97 07/30/24 19:06 Oxygen Delivery Room Air 07/30/24 19:06 MDM - Trauma MDM Narrative Medical decision making narrative: patient is a 28-year-old male with left hand accidental drill bit into the palm of the hypothenar region. Tetanus booster. anesthesia of the area and removal of the drill bit. Imaging Data Attestation: I personally reviewed and interpreted this imaging study as follows: Radiologist's impression: X-ray left hand is negative for acute osseous changes and drill bit was appreciated in the soft tissue Discharge Plan Discharge Clinical Impression: Foreign body hand Qualifiers: Encounter type: initial encounter Laterality: left Qualified Code(s): S60.552A - Superficial foreign body of left hand, initial encounter Patient Disposition: Home Condition: Stable Instructions: Antibiotic Form, Soft Tissue Foreign Body (ED) Additional Instructions: Please follow-up with primary doctor in the next week. Please use antibiotic ointment on the area once to twice a day. Use soap water often to the wound. come back to the ER if there is any drainage of green or yellow discharge. Come back to the ER with any fever. Or worse pain. Patient Language: Upper Sorbian Prescriptions: New sulfamethoxazole-trimethoprim [Bactrim DS] 800-160 mg tablet 1 tablet PO BID 7 Days Qty: 14 0RF No Action sulfamethoxazole-trimethoprim [Bactrim DS] 800-160 mg tablet 1 tablet PO Q12H Qty: 14 0RF Follow-up/Referrals: Nithya,DASH Ontiveros [Primary Care Provider] - Time of Disposition: 20:10
[2024-07-30] MEDS: TETANUS,DIPHTHERIA,AC PERTUSSIS ADULT 0.5 ML (ADACEL) IM (19:48)
[2024-07-30] MEDS: NEOMYCIN/POLYMYXIN/BACITRACIN OINTMENT PACKET 1 PACKET TOPICAL (19:57)
[2024-07-30] MEDS: LIDOCAINE 1% LOCAL INJ 10 ML VIAL 5 ML INFILTRATE (19:59)
[2024-07-30] MEDS: SULFAMETHOXAZOLE/TRIMETHOPRIM 800/160 MG DS TABLET 2 TAB PO (20:23)
[2024-07-30 21:00] VITALS: BP 128/82; PULSE 82; RESP 16; TEMP 37; O2SAT 98
== END 2024-07-30 21:03 | disposition home or self-care (01) ==
PROVIDERS: Emergency Provider Emergency Medicine; PCP Registered Nurse
DX: S61.442A Puncture wound with foreign body of left hand, initial encounter (principal); Z23 Encounter for immunization; W26.8XXA Contact with other sharp object(s), not elsewhere classified, initial encounter
CPT/HCPCS: 73130; 90471; 90715; 99283; A9270; J2003

== ENCOUNTER 2024-09-24 21:56 | Emergency (ER) | payer OTHER, SELFPAY ==
--- NOTE | ~2024-09-24 | XR_ITS ---
Clinical Indication: Cough PA and lateral views of the chest: Comparison: 07/26/2024 Findings: The lungs are clear, without evidence of focal consolidation or pleural effusion. Cardiome diastinal silhouette is within normal limits. Stable probable calcified enlarged right hilar lymph no de. Bones and soft tissues are unremarkable. Impression: Clear lungs. Stable probable calcified, enlarged right hilar lymph node. Reviewed, dictated and finalized at location . Impression: Clear lungs. Stable probable calcified, enlarged right hilar lymph node.
[2024-09-24 21:57] VITALS: BP 149/85; PULSE 103; RESP 19; TEMP 35.9; O2SAT 98
--- NOTE | 2024-09-24 22:00 | ED.URI ---
HPI - URI/Sore Throat General Chief Complaint: Upper Respiratory Infection Stated Complaint: cough Time Seen by Provider: 09/24/24 22:00 Source: patient Mode of arrival: ambulatory Limitations: no limitations History of Present Illness HPI Narrative: patient is a 29-year-old male with a cough and shortness of breath for the past 1-2 months. He is getting worse at this time and came in for evaluation. He has asthma and does not use inhalers that he is prescribed. MD elicited complaint: cough Pertinent past history: COPD and asthma Onset (ago): month(s) (2) Consistency: constant Severity: moderate Pain scale (0-10): 0 Description of mucous: clear Able to tolerate fluids by mouth: Yes Exacerbating factors: exertion Relieving factors: other ( Patient was given a Z-Kirk with good results but then symptoms had returned) Context: other ( patient has shortness of breath and cough for the past couple months and that is getting worse and he is here for evaluation) Associated symptoms: fever and shortness of breath Treatments prior to arrival: antibiotics Related Data Allergies Allergy/AdvReac Type Severity Reaction Status Date / Time Penicillins Allergy Unknown Verified 09/24/24 23:00 SKIN GLUE Allergy Unknown Uncoded 07/30/24 19:11 Review of Systems Review of Systems: All systems reviewed & are unremarkable except as noted in HPI and below Constitutional: Constitutional: Reports no additional constitutional complaints Eyes: Eyes: Reports no additional eye complaints ENT: Reports system reviewed and no additional complaints, except as documented Cardiovascular: Cardiovascular: Reports no additional cardiovascular complaints Respiratory: Respiratory: Reports no additional respiratory complaints Gastrointestinal: Gastrointestinal: Reports no additional gastrointestinal complaints Genitourinary: Genitourinary: Reports no additional male genitourinary complaints Musculoskeletal: Musculoskeletal: Reports no additional musculoskeletal complaints Integumentary/Breasts: Skin/Breast: Reports system reviewed and no additional complaints, except as docu Neurologic: Reports system reviewed and no additional complaints, except as documented Psychiatric: Psychiatric: Reports no additional psychiatric complaints Endocrine: Endocrine: Reports no additional endocrine complaints Hematologic/Lymphatic: Hematologic/Lymphatic: Reports no additional hematologic/lymphatic complaints Allergic/Immunologic: Allergic/Immunologic: Reports no additional allergic/immunologic complaints PMFSH Past Medical History Medical History Dental caries Asthma Surgical History Surgical History Hypospadias Exam Const: General: ill appearing Nutritional Appearance: well nourished Orientation/consciousness: patient oriented x3 Limitations: no limitations HENMT: Head: normal to inspection Ears: external ears normal Face/Nose/Sinus: Normal external nose present Eyes: Conjunctivae: conjunctivae normal Pupils: Equal, round and reactive pupils present EOM: EOMs intact bilaterally Neck: Neck: normal visual inspection Chest: Chest palpation & inspection: normal inspection of the chest Resp: Effort & Inspection: abnormal respiratory effort, not labored, no retractions, tachypneic and no use of accessory muscles Auscultation: not clear to auscultation bilaterally, no crackles, no rales, no rhonchi, no wheezes, breath sounds present and diminished lung sounds ( bilateral lower lungs) Cardio: Rate: regular rate Rhythm: regular rhythm Heart sounds: no murmurs GI: Inspection: non-distended GI Palp: Yes Soft to palpation and No Tenderness to palpation present (GI) Auscultation: normal bowel sounds : General: Yes bladder normal to palpation Back/Spine/Pelvis: Back: no CVA tenderness Skin: General skin exam: normal color Rashes: no rashes Wounds: no wounds Neuro: General: patient oriented x3 Cranial nerves: Yes Nystagmus not present Speech: normal speech Extrem: General: normal to inspection Psych: Mental Status: mental status grossly normal Affect: normal affect Attitude: cooperative Course Vital Signs Vital signs: Vital Signs Temperature 35.9 C L 09/24/24 21:57 Pulse Rate 103 H 09/24/24 21:57 Respiratory Rate 19 09/24/24 21:57 Blood Pressure 149/85 H 09/24/24 21:57 Pulse Oximetry 98 09/24/24 21:57 Oxygen Delivery Room Air 09/24/24 21:57 Temperature 35.9 C L 09/24/24 21:57 Pulse Rate 83 09/24/24 23:05 Respiratory Rate 20 09/24/24 23:05 Blood Pressure 149/85 H 09/24/24 21:57 Pulse Oximetry 100 09/24/24 23:05 Oxygen Delivery Room Air 09/24/24 23:05 MDM - URI/Sore Throat MDM Narrative Medical decision making narrative: patient is a 29-year-old male with cough and shortness of breath for the past couple of months getting worse at this time. We will do a chest x-ray and treatment at this time. Imaging Data Attestation: I personally reviewed and interpreted this imaging study as follows: My impression: Chest x-ray is negative for acute process pending final radiology reading in the morning Discharge Plan Discharge Clinical Impression: Asthma exacerbation Qualifiers: Asthma severity: moderate Asthma persistence: persistent Qualified Code(s): J45.41 - Moderate persistent asthma with (acute) exacerbation Patient Disposition: Home Condition: Stable Instructions: Antibiotic Form, Asthma (ED) Patient Language: Croatian Prescriptions: New albuterol sulfate 2.5 mg /3 mL (0.083 %) solution for nebulization 2.5 mg inhalation Q6H PRN (Reason: shortness of breath or wheezing) Qty: 90 0RF doxycycline monohydrate 100 mg capsule 100 mg PO BID 10 Days Qty: 20 0RF prednisone 20 mg tablet 40 mg PO DAILY 3 Days Qty: 6 0RF No Action sulfamethoxazole-trimethoprim [Bactrim DS] 800-160 mg tablet 1 tablet PO Q12H Qty: 14 0RF sulfamethoxazole-trimethoprim [Bactrim DS] 800-160 mg tablet 1 tablet PO BID 7 Days Qty: 14 0RF Follow-up/Referrals: Nithya,DASH Ontiveros [Primary Care Provider] -
--- NOTE | 2024-09-24 22:19 | PC.NURSE ---
Dr. Dick at bedside at this time. update of results and plan of care presented to patient.
--- NOTE | 2024-09-24 22:19 | PC.NURSE ---
pt to imaging via wheelchair per radioactivity technician.
[2024-09-24] MEDS: DOXYCYCLINE HYCLATE 100 MG TABLET PO (23:00)
[2024-09-24] MEDS: IPRATROPIUM 0.5 MG/ALBUTEROL SULFATE 2.5 MG AMPUL.NEB 3 ML INHALATION (23:02)
[2024-09-24 23:05] VITALS: PULSE 83; RESP 20; O2SAT 100
--- NOTE | 2024-09-24 23:05 | PC.NURSE ---
pt medicated per order, see MAR. significant other at bedside. RN monittoring. VSS.
== END 2024-09-24 23:21 | disposition home or self-care (01) ==
PROVIDERS: Emergency Provider Emergency Medicine; PCP Registered Nurse
DX: J45.41 Moderate persistent asthma with (acute) exacerbation (principal)
CPT/HCPCS: 71046; 99283; A9270; J7512